=== PATIENT | male | born 1965 | race Caucasian/White ===

== ENCOUNTER 2017-10-23 16:05 | Emergency (ER) | payer OTHER ==
[~2017-10-23] VITALS: Ht 190.5 cm; Wt 95.2 kg
[~2017-10-23 16:05] MED LIST: ANTIBX PO; Bactrim Ds Tab1 EACH PO; Cleocin HCl300 MG PO; HYDR1TAB94 PO; Percocet 5-3251 EACH PO; Rocephin 1g1 G/50 ML IV
[2017-10-23 16:39] LABS: BASOPHILS ABSOLUTE AUTO 0.05 K/mm3 (0.00-0.23); BASOPHILS PERCENT AUTO 1 % (0-2); EOSINOPHILS ABSOLUTE AUTO 0.24 K/mm3 (0.00-0.68); EOSINOPHILS PERCENT AUTO 3 % (0-6); Hematocrit 39.9 % (37.0-53.0); Hemoglobin 13.3 g/dL (13.5-17.5); IMMATURE GRAN ABSOLUTE AUTO 0.02 K/mm3 (0.00-0.10); IMMATURE GRAN PERCENT AUTO 0 % (0-1); LYMPHOCYTES ABSOLUTE AUTO 2.09 K/mm3 (0.84-5.20); LYMPHOCYTES PERCENT AUTO 30 % (21-46); MONOCYTES ABSOLUTE AUTO 0.38 K/mm3 (0.16-1.47); MONOCYTES PERCENT AUTO 5 % (4-13); Mean Corpuscular HGB 31.2 pg (26.0-34.0); Mean Corpuscular HGB Conc 33.3 g/dL (31.5-36.5); Mean Corpuscular Volume 94 fL (80-100); Mean Platelet Volume 9.3 fL (9.1-12.4); NEUTROPHILS ABSOLUTE AUTO 4.29 K/mm3 (1.96-9.15); NEUTROPHILS PERCENT AUTO 61 % (41-73); Platelet Count 190 K/mm3 (150-400); RDW Coefficient Variation 13.2 % (11.7-14.2); RDW Standard Deviation 45.1 fL (35.1-46.3); Red Blood Cell Count 4.26 M/mm3 (4.30-5.90); White Blood Cell Count 7.07 K/mm3 (4.00-11.30)
[2017-10-23 16:59] LABS: Alanine Aminotransfer (ALT/SGP 30 U/L (12-78); Albumin, Blood 3.5 g/dL (3.4-5.0); Alk Phos 86 U/L (50-136); Anion Gap 9 mmol/L (6-16); Aspartate Aminotrans (AST/SGOT 32 U/L (12-37); Bilirubin, Total 0.2 mg/dL (0.1-1.0); Blood Urea Nitrogen 15 mg/dL (8-24); Bun/Creatinine Ratio 18.6 (12.0-20.0); CO2, Blood 23 mmol/L (21-32); Calcium, Blood 8.4 mg/dL (8.5-10.1); Chloride, Blood 109 mmol/L (98-108); Creatinine, Blood 0.81 mg/dL (0.60-1.20); Globulin, Blood 3.5 g/dL (2.2-4.0); Glomerular Filtration Rate >60 (60-); Glucose, Blood 105 mg/dL (70-99); Potassium, Blood 3.7 mmol/L (3.5-5.5); Sodium, Blood 141 mmol/L (136-145); Troponin I <0.015 ng/mL (0.000-0.040)
== END 2017-10-23 19:18 | disposition home or self-care (01) ==
LOC: ER 16:05
PROVIDERS: Emergency Medicine
DX: R07.9 Chest pain, unspecified (principal); I10 Essential (primary) hypertension; F17.210 Nicotine dependence, cigarettes, uncomplicated; Z86.73 Personal history of transient ischemic attack (TIA), and cerebral infarction without residual deficits
CPT/HCPCS: 36415; 71046; 80053; 84484; 85025; 93005; 93010; 99283

== ENCOUNTER 2019-01-26 12:44 | Inpatient (IN) | payer OTHER ==
[~2019-01-26] VITALS: Ht 193 cm; Wt 106.6 kg
[~2019-01-26 12:44] MED LIST changes: +Keflex500 MG PO
[2019-01-26 15:26] LABS: BASOPHILS ABSOLUTE AUTO 0.06 K/mm3 (0.00-0.23); BASOPHILS PERCENT AUTO 1 % (0-2); EOSINOPHILS PERCENT AUTO 2 % (0-6); Hemoglobin 15.2 g/dL (13.5-17.5); IMMATURE GRAN ABSOLUTE AUTO 0.05 K/mm3 (0.00-0.10); IMMATURE GRAN PERCENT AUTO 0 % (0-1); LYMPHOCYTES ABSOLUTE AUTO 1.42 K/mm3 (0.84-5.20); LYMPHOCYTES PERCENT AUTO 11 % (21-46); MONOCYTES ABSOLUTE AUTO 0.93 K/mm3 (0.16-1.47); MONOCYTES PERCENT AUTO 8 % (4-13); Mean Corpuscular HGB 30.3 pg (26.0-34.0); Mean Corpuscular HGB Conc 32.3 g/dL (31.5-36.5); Mean Corpuscular Volume 94 fL (80-100); Mean Platelet Volume 9.6 fL (9.1-12.4); NEUTROPHILS ABSOLUTE AUTO 9.69 K/mm3 (1.96-9.15); NEUTROPHILS PERCENT AUTO 78 % (41-73); Platelet Count 196 K/mm3 (150-400); RDW Coefficient Variation 13.1 % (11.7-14.2); RDW Standard Deviation 44.5 fL (35.1-46.3); Red Blood Cell Count 5.02 M/mm3 (4.30-5.90); White Blood Cell Count 12.45 K/mm3 (4.00-11.30)
[2019-01-26 15:49] LABS: Alanine Aminotransfer (ALT/SGP 34 U/L (12-78); Albumin, Blood 3.3 g/dL (3.4-5.0); Albumin/Globulin Ratio 0.7 (0.8-1.8); Alk Phos 114 U/L (50-136); Anion Gap 7 mmol/L (6-16); Aspartate Aminotrans (AST/SGOT 22 U/L (12-37); Bilirubin, Total 0.5 mg/dL (0.1-1.0); Blood Urea Nitrogen 9 mg/dL (8-24); Bun/Creatinine Ratio 10.2 (12.0-20.0); CO2, Blood 23 mmol/L (21-32); Chloride, Blood 104 mmol/L (98-108); Creatinine, Blood 0.88 mg/dL (0.60-1.20); Globulin, Blood 4.7 g/dL (2.2-4.0); Glomerular Filtration Rate >60 (60-); Glucose, Blood 86 mg/dL (70-99); Potassium, Blood 4.2 mmol/L (3.5-5.5); Sodium, Blood 134 mmol/L (136-145)
[2019-01-26 22:31] LABS: U Amphetamine Screen Not Detected; U Barbituate Screen Not Detected; U Benzodiazapine Screen Not Detected; U Buprenorphine Screen Not Detected; U Cannabinoids Screen Not Detected; U Cocaine Screen Not Detected; U Methadone Screen Not Detected; U Methamphetamine Screen DETECTED; U Opiates Screen DETECTED; U Oxycodone Screen Not Detected; U Phencyclidine Screen Not Detected; U Propoxyphene Screen Not Detected
[2019-01-27 05:28] LABS: BASOPHILS ABSOLUTE AUTO 0.03 K/mm3 (0.00-0.23); BASOPHILS PERCENT AUTO 0 % (0-2); EOSINOPHILS ABSOLUTE AUTO 0.38 K/mm3 (0.00-0.68); EOSINOPHILS PERCENT AUTO 4 % (0-6); Hemoglobin 12.9 g/dL (13.5-17.5); IMMATURE GRAN ABSOLUTE AUTO 0.06 K/mm3 (0.00-0.10); IMMATURE GRAN PERCENT AUTO 1 % (0-1); LYMPHOCYTES ABSOLUTE AUTO 1.26 K/mm3 (0.84-5.20); LYMPHOCYTES PERCENT AUTO 12 % (21-46); MONOCYTES ABSOLUTE AUTO 0.84 K/mm3 (0.16-1.47); MONOCYTES PERCENT AUTO 8 % (4-13); Mean Corpuscular HGB 30.8 pg (26.0-34.0); Mean Corpuscular HGB Conc 33.1 g/dL (31.5-36.5); Mean Corpuscular Volume 93 fL (80-100); Mean Platelet Volume 9.7 fL (9.1-12.4); NEUTROPHILS ABSOLUTE AUTO 7.98 K/mm3 (1.96-9.15); NEUTROPHILS PERCENT AUTO 76 % (41-73); Platelet Count 190 K/mm3 (150-400); RDW Coefficient Variation 12.8 % (11.7-14.2); RDW Standard Deviation 43.9 fL (35.1-46.3); Red Blood Cell Count 4.19 M/mm3 (4.30-5.90); White Blood Cell Count 10.55 K/mm3 (4.00-11.30)
--- NOTE | 2019-01-27 05:39 | NUR ---
SHIFT SUMMARY PATIENT IS ALERT AND ORIENTED TO SELF, PLACE, AND TIME. PATIENT WENT OUT TO SMOKE. THEN SLEPT WELL. USING URINAL AT BEDSIDE. CELLULITIS MARKED ON RIGHT ARM BY BRIDGET HOLLOWAY. BRIDGET ALSO PLACED A POWER GLIDE IN LEFT UPPER ARM. REMOVED 20G IV IN LEFT HAND, IT WAS INFILTRATED. NO NEW CHANGES NOTED AT THIS TIME. VITALS STABLE. PT DOES STILL HAVE IV IN RIGHT FOOT.
[2019-01-27 05:50] LABS: Anion Gap 5 mmol/L (6-16); Blood Urea Nitrogen 11 mg/dL (8-24); Bun/Creatinine Ratio 11.9 (12.0-20.0); CO2, Blood 27 mmol/L (21-32); Calcium, Blood 8.4 mg/dL (8.5-10.1); Chloride, Blood 106 mmol/L (98-108); Creatinine, Blood 0.92 mg/dL (0.60-1.20); Glomerular Filtration Rate >60 (60-); Glucose, Blood 100 mg/dL (70-99); Sodium, Blood 138 mmol/L (136-145)
--- NOTE | 2019-01-27 16:47 | NUR ---
PT IS A/OX3, PLEASANT AND COOPERATIVE, THE PT IS UP IND IN HIS ROOM AND HAS BEEN OUTSIDE X2 TODAY TO SMOKE, THE PT HAS SLEPT FOR MOST OF THE DAY, PT WAS MEDICATED FOR RIGHT ARM PAIN WITH TYLENOL X2 TODAY, CALL LIGHT IN REACH WILL CONTINUE TO MONITOR AND ASSESS FOR CHANGES
--- NOTE | 2019-01-28 06:09 | NUR ---
SHIFT SUMMARY PATIENT ALERT AND ORIENTED. PATIENT SLEPT ALMOST ALL OF SHIFT. USES URINAL AT BEDSIDE. DID NOT SEE PATIENT GO OUT SIDE TO SMOKE THROUGHOUT THE NIGHT. LAB CALLED TO REPORT THAT BLOOD CULTURES CAME BACK POSITIVE. NOTIFED CHARGE, PHARMACIST, AND HOSPITALIST. ANTIBIOTICS CHANGED. NO OTHER NEW CHANGES. VITALS STABLE.
--- NOTE | 2019-01-28 17:47 | NUR ---
SHIFT SUMMARY: NO ACUTE CHANGES TO REPORT THIS SHIFT. PT A&O; CALM AND COOPERATIVE WITH CARE. PT INDEPENDENT IN ROOM; PT OUTSIDE TO SMOKE SEVERAL TIMES THIS SHIFT. R ARM CELLULITIS; EDGES MARKED; IV ABX CONTINUING. WCTM.
--- NOTE | 2019-01-29 18:01 | NUR ---
SHIFT SUMMARY: NO ACUTE CHANGES TO REPORT THIS SHIFT. PT A&O; CALM AND COOPERATIVE WITH CARE. PT INDEPENDENT IN ROOM. NO C/O PAIN THIS SHIFT. PT INDEPENDENT IN ROOM; OUTSIDE TO SMOKE SEVERAL TIMES THIS SHIFT. IV ABX CONTINUING. WCTM.
--- NOTE | 2019-01-30 04:58 | NUR ---
pt quiet but cooperative, withdrawn and minimal activity. out tosmoke x 1. Denies pain or acute distress. rt arm cellulitis decreased edema warmth and redness. no visitors tonight. RT arm lesions dry without drainage.
--- NOTE | 2019-01-30 18:49 | NUR ---
SHIFT SUMMARY: NO ACUTE CHANGES TO REPORT THIS SHIFT. PT A&O; CALM AND COOPERATIVE WITH CARE. NO C/O PAIN THIS SHIFT. PT INDEPENDENT IN ROOM; OUTSIDE TO SMOKE SEVERAL TIMES THIS SHIFT; NICOTINE PATCH NOT IN PLACE. R FA CELLULITIS; IV ABX CONTINUING. EXPECTED D/C 01/31, PER HOSPITALIST (DR HEART). WCTM.
[2019-01-31] MEDS ORDERED: Augmentin 875-1 EACH PO (10:41)
[2019-01-31] MEDS ORDERED: Florastor250 MG PO (10:41)
--- NOTE | 2019-01-31 15:05 | NUR ---
DISCHARGE SUMMARY: LATE ENTRY PATIENT DENIED PAIN OR DISCOMFORT THROUGHOUT THE SHIFT. DRESSING ON RIGHT ARM REMAINED C/D/I. PATIENT ABLE TO MOVE RIGHT HAND WITHOUT DISCOMFORT. PATIENT OUTSIDE MULTIPLE TIMES TO SMOKE. DENIED DIZZINESS OR SOB WITH AMBULATION. PATIENT DISCHARGED PER DR. CHRISTIANSEN'S ORDERS. PATIENT PROVIDED WITH PACKET OF RESOURCES FOR THE HOMELESS POPULATION. APPT. SET UP WITH NEW PCP. PROVIDED PATIENT WITH PACKET TO FILL OUT PRIOR TO FIRST APPT. PATIENT DENIED ASSISTANCE. HE REPORTED THAT HIS SISTER WILL HELP HIM. DISCHARGE EDUCATION AND INFORMATION PROVIDED. RX FAXED TO [facility] PER PATIENT REQUEST. ALL QUESTIONS AND CONCERNS ADDRESSED. PATIENT DISCHARGED IN WHEELCHAIR WITH SCHOOL DIRECTOR. PATIENT STABLE AT TIME OF DISCHARGE.
== END 2019-01-31 12:26 | disposition home or self-care (01) | DRG 872 ==
LOC: ER 12:44 → MEDS 18:04 → ENPENDDIS 01-31 10:43 → MEDS 01-31 12:26
PROVIDERS: Nurse Practitioner Acute Care; Physician Assistant; ADMIT Internal Medicine
DX: A41.9 Sepsis, unspecified organism (principal); L03.113 Cellulitis of right upper limb; L02.91 Cutaneous abscess, unspecified; Z86.73 Personal history of transient ischemic attack (TIA), and cerebral infarction without residual deficits; F17.210 Nicotine dependence, cigarettes, uncomplicated; Z59.0 Homelessness
CPT/HCPCS: 36415; 80048; 80053; 82550; 83605; 85025; 87040; 93971; 96361; 96365; 96375; 99283; 99284-25; A9270; J0290; J0690; J0696; J1650; J1885; J2270; J3370; J7030; J7050

== ENCOUNTER → 2023-08-25 | Outpatient (CLI) | payer OTHER ==
[~2023-08-25] MED LIST changes: +Augmentin 875-1 EACH PO; +Florastor250 MG PO
== END ==
LOC: LAB SHORT 11:29 → LAB 11:29
DX: L03.116 Cellulitis of left lower limb (principal)
CPT/HCPCS: 87070; 87075; 87077; 87147; 87186; 87205

== ENCOUNTER 2024-06-23 05:06 | Inpatient (IN) | payer OTHER ==
[~2024-06-23] VITALS: Ht 193 cm; Wt 111.1 kg
[~2024-06-23 05:06] MED LIST changes: +ASPI81CH PO; +Cleocin HCl150 MG PO; +DOXY100 PO; +VISBIOME 112.51 EACH PO
[2024-06-23] MEDS ORDERED: Ketorolac Tromethamine 30mg Vial IV ONE (07:20)
[2024-06-23 08:13] LABS: BASOPHILS ABSOLUTE AUTO 0.08 K/mm3 (0.00-0.23); BASOPHILS PERCENT AUTO 0 % (0-2); EOSINOPHILS PERCENT AUTO 0 % (0-6); Hematocrit 49.4 % (37.0-53.0); Hemoglobin 16.4 g/dL (13.5-17.5); IMMATURE GRAN ABSOLUTE AUTO 0.24 K/mm3 (0.00-0.10); IMMATURE GRAN PERCENT AUTO 1 % (0-1); LYMPHOCYTES ABSOLUTE AUTO 1.01 K/mm3 (0.84-5.20); LYMPHOCYTES PERCENT AUTO 5 % (21-46); MONOCYTES ABSOLUTE AUTO 1.13 K/mm3 (0.16-1.47); MONOCYTES PERCENT AUTO 6 % (4-13); Mean Corpuscular HGB 30.3 pg (26.0-34.0); Mean Corpuscular HGB Conc 33.2 g/dL (31.5-36.5); Mean Corpuscular Volume 91 fL (80-100); Mean Platelet Volume 9.5 fL (9.1-12.4); NEUTROPHILS ABSOLUTE AUTO 18.01 K/mm3 (1.96-9.15); NEUTROPHILS PERCENT AUTO 88 % (41-73); Platelet Count 250 K/mm3 (150-400); RDW Coefficient Variation 13.2 % (11.7-14.2); RDW Standard Deviation 44.1 fL (35.1-46.3); Red Blood Cell Count 5.42 M/mm3 (4.30-5.90); White Blood Cell Count 20.47 K/mm3 (4.00-11.30)
[2024-06-23 09:04] LABS: Albumin, Blood 3.5 g/dL (3.4-5.0); Albumin/Globulin Ratio 0.6 (0.8-1.8); Bilirubin, Total 0.8 mg/dL (0.1-1.0); Bun/Creatinine Ratio 10.4 (12.0-20.0); Calcium, Blood 9.7 mg/dL (8.5-10.1); Creatinine, Blood 1.25 mg/dL (0.60-1.20); Globulin, Blood 5.6 g/dL (2.2-4.0); Magnesium, Blood 1.7 mg/dL (1.6-2.4); Potassium, Blood 4.8 mmol/L (3.5-5.5); Total Protein, Blood 9.1 g/dL (6.4-8.2)
[2024-06-23] MEDS ORDERED: NS 1,000 ML IV SCH ×3 (09:15→12:35)
[2024-06-23] MEDS ORDERED: CeFAZolin Sodium 2,000 MG in NS 100 ML IV ONE (09:15)
[2024-06-23] MEDS ORDERED: Vancomycin HCL 2,500 MG in NS 500 ML IV ONE (09:35)
[2024-06-23] MEDS ORDERED: Ondansetron HCl 2 MG / ML 2ML Vial IV PRN (10:25)
[2024-06-23] MEDS ORDERED: FLU VACC TS2024-25(6MOS UP)/PF 45 MCG/0.5 ML SYRINGE IM SCH (10:30)
[2024-06-23] MEDS ORDERED: Acetaminophen 325 MG TABLET PO PRN (10:30)
[2024-06-23] MEDS ORDERED: Nicotine 14 MG PATCH TOP SCH (11:00)
[2024-06-23 14:45] VITALS: BP 148/74
[2024-06-23] MEDS ORDERED: TraMADol HCl 50 MG Tab PO PRN (15:25)
--- NOTE | 2024-06-23 19:19 | NUR ---
SHIFT SUMMARY: KAREN IS A&OX4. VSS, NO ACUTE EVENTS SINCE ADMISSION TO THE FLOOR THIS AFTERNOON. PT SHOWERED, POWERGLIDE TO RIGHT UPPER ARM PATENT, FLUIDS INFUSING PER ORDER. PT REPORTED CARDIAC HX WHICH HE DESCRIBED "HEART VALVE" AND COMPLAINED OF CHEST PAIN. CALLED AND DISCUSSED WITH PROVIDER AND REQUESTED TELEMETRY, NO NEW ORDERS WERE GIVEN. PT DENIES CHEST PAIN AT THIS TIME. PT HAS AN OPEN WOUND TO THE LEFT FOREARM WHICH IS DRAINING PURULENT FLUID, CALLED PROVIDER AND REQUESTED WOUND CARE ORDERS, NO NEW ORDERS WERE GIVEN, RN INSTRUCTED TO LEAVE WOUND OPEN TO AIR. IMAGING REVEALED A NONDISPLACED FX OF THE LEFT RADIAL HEAD, CALLED PROVIDER AND REQUESTED ORDERS FOR WEIGHT BEARING STATUS AND PROTECTION, PROVDER PLACED ORDER FOR ORTHO CONSULT. PT'S HANDS AND FEET NOTED TO HAVE PURPULISH DISCOLORATION, DISCUSSED WITH PROVIDER AND REQUESTED DIAGNOSTIC STUDY TO RULE OUT PERIPHERAL VASCULAR DISEASE, NO ORDER RECEIVED AT THIS TIME. HE IS TOLERATING PO INTAKE WELL, INDEPENDENT IN THE ROOM, AND IS LYING IN BED WITH THE CALL LIGHT IN REACH. ANTIBIOTICS WERE STARTED IN THE ER, CULTURE COLLECTED FROM LEFT FOREARM WOUND AND SENT TO LAB. HE IS LYING IN BED WITH THE CALL LIGHT IN REACH, BED IN LOWEST POSITION. REPORT WAS GIVEN TO RETAIL SPECIALIST RN.
[2024-06-23] MEDS ORDERED: CeFAZolin Sodium 2,000 MG in NS 100 ML IV SCH (20:00)
[2024-06-23 20:20] VITALS: BP 141/85
[2024-06-23 22:57] VITALS: BP 141/80
[2024-06-23] MEDS ORDERED: Vancomycin HCL 1,250 MG in NS 250 ML IV SCH (23:00)
[2024-06-24] VITALS (16 sets, daily range): BP systolic 115–153; BP diastolic 60–95
[2024-06-24] MEDS ORDERED: NS 250 ML IV PRN (04:05)
--- NOTE | 2024-06-24 04:55 | NUR ---
SHIFT SUMMARY 58 YR M ADMITTED ON 06/23/24. FULL CODE. NO ACUTE CHANGES THIS SHIFT. WOUND ON LEFT FOREARM DRAINING PURULENT DRAINAGE CAUSING GOWN AND BEDDING TO BE WET SO IT WAS WRAPPED W/ NON STICK PAD AND GAUZE. PT HAD A FEVER OF 101.1 AT BEGINNING OF SHIFT AND WAS GIVEN TYLENOL, BRINGING TEMP DOWN TO 98. TEMP BEGINNING TO RISE AGAIN NEAR END OF SHIFT SO ANOTHER DOSE OF TYLENOL WAS GIVEN. PT HAD NO C/O PAIN OR DISCOMFORT THIS SHIFT AND HAS SLEPT FOR MOST OF THE NIGHT. NO C/O CHEST PAIN OR SOB. POWERGLIDE IN R UPPER ARM DOES NOT DRAW. CONTINENT AND USES URINAL INDEPENDANTLY. BED IN LOW POSITION AND CALL LIGHT IN REACH.
--- NOTE | 2024-06-24 08:10 | NUR ---
NOTE: PATIENT ORTHO CONSULT FOR RADIAL HEAD FX WAS CALLED AT 0752, SPOKE TO DR. BLOOD AND VERIFIED IF PATIENT WILL PLACED ON NPO. PER DR. PEREZ THE FX IS NON OPERATIVE PATIENT CAN EAT HIS BREAKFAST, HE WILL ORDERED AN XRAY TO AFFECTED SITE AND WILL BE PLACE ON ARM SLING.
[2024-06-24] MEDS ORDERED: Enoxaparin 40 MG/0.4 ML SYR SC SCH (09:00)
[2024-06-24 09:15] LABS: Hematocrit 40.6 % (37.0-53.0); Hemoglobin 13.9 g/dL (13.5-17.5); Mean Corpuscular HGB 30.5 pg (26.0-34.0); Mean Corpuscular HGB Conc 34.2 g/dL (31.5-36.5); Mean Corpuscular Volume 89 fL (80-100); Mean Platelet Volume 8.9 fL (9.1-12.4); Platelet Count 173 K/mm3 (150-400); RDW Coefficient Variation 13.2 % (11.7-14.2); RDW Standard Deviation 43.4 fL (35.1-46.3); Red Blood Cell Count 4.55 M/mm3 (4.30-5.90)
[2024-06-24 09:37] LABS: Bun/Creatinine Ratio 14.9 (12.0-20.0); Calcium, Blood 8.6 mg/dL (8.5-10.1); Creatinine, Blood 1.21 mg/dL (0.60-1.20); Potassium, Blood 3.9 mmol/L (3.5-5.5)
--- NOTE | 2024-06-24 16:52 | NUR ---
SHIFT SUMMARY: PATIENT A/OX4, PLEASANT AND COOPERATIVE c CARE. PATIENT DENIES CP/PRESSURE, SOB, N/V AND DIZZINESS. PATIENT HAS ABSCESS TO L FOREARM c PURULENT DRAINAIGE. DR. BLOOD (ORTHOPEDICS) CAME IN FOR CONSULT TO RADIAL HEAD FX AND SPOKE TO PATIENT c PLAN OF CARE TO PROCEED c I/D DONE TO L FOREARM ABSCESS SOMETIMES THIS PM. PATIENT AGREED c THE PROCEDURE AND HAS BEEN NPO SINCE 0900. PATIENT RECEIVED IV ABX/SCHEDULED MEDS PER EMAR. PATIENT CONTINENT OF BLADDER, USES URINAL INDEPENDENTLY T/O SHIFT. VITAL SIGNS REVIEWED. CALL LIGHT IN REACH.
[2024-06-24] MEDS ORDERED: propofoL 20 ML IV ONE (17:29)
[2024-06-24] MEDS ORDERED: FentaNYL Citrate 50 MCG/ML 2 ML Injection ONE (17:52)
[2024-06-24] MEDS ORDERED: Lactated Ringer's 1,000 ML IV ONE (18:14)
--- NOTE | 2024-06-24 18:21 | NUR ---
ADDITIONAL NOTE: PATIENT LEFT THE ROOM AT 1821 TRANSPORTED VIA GURNEY, BY AMIE WRIGHT TO DAY SURGERY FOR I/D TO L FOREARM.
[2024-06-24] MEDS ORDERED: Ipratropium/Albuterol SulF 2.5-0.5MG/3 ML Amp ONE (18:33)
[2024-06-24] MEDS ORDERED: Ipratropium/Albuterol SulF 2.5-0.5MG/3 ML Amp INH ONE (18:40)
[2024-06-24] MEDS ORDERED: Ondansetron HCl 2 MG / ML 2ML Vial ONE (19:06)
[2024-06-24] MEDS ORDERED: HYDROmorphone HCl/Pf 1MG SYR ONE (19:40)
[2024-06-25 00:57] VITALS: BP 135/80
--- NOTE | 2024-06-25 03:57 | NUR ---
SHIFT SUMMARY ADMITTED FOR SEVERE SEPSIS/LACTIC ACIDOSIS. FULL CODE. I&D PERFORMED ON LEFT FOREARM AT BEGINNING OF THIS SHIFT. SUTURES IN PLACE, DRESSING IS CLEAN DRY AND INTACT. PT IS A&O X4, ON RA, CARDIAC DIET. DR. BLOOD IS ORTHO CONSULT. IV ANTIB RX ARE SCHEDULED. LEFT ARM IS IN A SLING FROM A WEEK OLD FRACTURE. PAIN RX GIVEN ONE TIME THIS SHIFT. HE DID RECEIVE AN RT TREATMENT FOR HIS BREATHING DOWN IN DAY SURGERY WHICH IMPROVED HIS BREATHING.
[2024-06-25 04:54] VITALS: BP 145/85
[2024-06-25 04:58] LABS: Hematocrit 39.3 % (37.0-53.0); Hemoglobin 13.2 g/dL (13.5-17.5); Mean Corpuscular HGB 30.3 pg (26.0-34.0); Mean Corpuscular HGB Conc 33.6 g/dL (31.5-36.5); Mean Corpuscular Volume 90 fL (80-100); Platelet Count 186 K/mm3 (150-400); RDW Coefficient Variation 13.1 % (11.7-14.2); RDW Standard Deviation 43.6 fL (35.1-46.3); Red Blood Cell Count 4.35 M/mm3 (4.30-5.90); White Blood Cell Count 8.93 K/mm3 (4.00-11.30)
[2024-06-25 05:23] LABS: Bun/Creatinine Ratio 13.9 (12.0-20.0); Calcium, Blood 8.3 mg/dL (8.5-10.1); Creatinine, Blood 1.22 mg/dL (0.60-1.20)
[2024-06-25 07:42] VITALS: BP 133/81
[2024-06-25 11:04] LABS: Vancomycin, Trough 16.5 ug/mL (5.0-10.0)
[2024-06-25] MEDS ORDERED: Terbinafine 250 MG Tab PO SCH (13:00)
[2024-06-25 15:46] VITALS: BP 135/88
--- NOTE | 2024-06-25 17:14 | NUR ---
SHIFT SUMMARY PT A&0X4. PT ADMITTED DUE TO SEVERE SEPSIS. PT RECEIVING ANTIBIOTICS. PT POD1 FROM A L FOREARM EXCISIONAL IRRIGATION AND DEBRIDMENT. PT HAS L NONDISPLACED RADIAL HEAD FX. L ARM IN SLING, PT EDUCATED TO WEAR SLING. PT REPORTS SOME PAIN, AND PAIN MANAGED PER EMAR. VSS. PT INDEPENDENT IN ROOM, CALLS APPROPRIATELY, CALL LIGHT IN REACH, BED IN LOWEST POSITION. PLAN FOR JEREMI TO DO DRESSING CHANGE TOMORROW AND CONT. ANTIBIOTICS.
[2024-06-25 20:45] VITALS: BP 123/70
[2024-06-25] MEDS ORDERED: Lactobacil 2-S.Thermo-Bifido 1 1 Cap PO SCH (21:00)
[2024-06-26 03:44] VITALS: BP 137/76
[2024-06-26 05:06] LABS: BASOPHILS ABSOLUTE AUTO 0.04 K/mm3 (0.00-0.23); BASOPHILS PERCENT AUTO 1 % (0-2); EOSINOPHILS ABSOLUTE AUTO 0.24 K/mm3 (0.00-0.68); EOSINOPHILS PERCENT AUTO 4 % (0-6); Hemoglobin 13.6 g/dL (13.5-17.5); IMMATURE GRAN ABSOLUTE AUTO 0.02 K/mm3 (0.00-0.10); IMMATURE GRAN PERCENT AUTO 0 % (0-1); LYMPHOCYTES ABSOLUTE AUTO 1.25 K/mm3 (0.84-5.20); LYMPHOCYTES PERCENT AUTO 19 % (21-46); MONOCYTES ABSOLUTE AUTO 0.59 K/mm3 (0.16-1.47); MONOCYTES PERCENT AUTO 9 % (4-13); Mean Corpuscular HGB 29.8 pg (26.0-34.0); Mean Corpuscular HGB Conc 33.2 g/dL (31.5-36.5); Mean Corpuscular Volume 90 fL (80-100); Mean Platelet Volume 9.6 fL (9.1-12.4); NEUTROPHILS ABSOLUTE AUTO 4.49 K/mm3 (1.96-9.15); NEUTROPHILS PERCENT AUTO 68 % (41-73); Platelet Count 208 K/mm3 (150-400); RDW Coefficient Variation 12.9 % (11.7-14.2); RDW Standard Deviation 42.5 fL (35.1-46.3); Red Blood Cell Count 4.56 M/mm3 (4.30-5.90); White Blood Cell Count 6.63 K/mm3 (4.00-11.30)
--- NOTE | 2024-06-26 05:06 | NUR ---
SHIFT SUMMARY ADMITTED FOR ABSCESS OF L. FOREARM/SEPSIS. FULL CODE. PLAN IS FOR IV ANTIB. I&D PERFORMED ON ABSCESS 06/25/24. SLING ON L. ARM FOR LEFT RADIAL FRACTURE. DR. BLOOD IS ORTHO CONSULT. CARDIAC DIET. POWERGLIDE IN RUE. INDEPENDENT IN ROOM. ON RA. NO NEW CONCERNS THIS SHIFT
[2024-06-26 05:42] LABS: Bun/Creatinine Ratio 14.9 (12.0-20.0); Calcium, Blood 8.6 mg/dL (8.5-10.1); Creatinine, Blood 1.21 mg/dL (0.60-1.20); Potassium, Blood 3.8 mmol/L (3.5-5.5)
[2024-06-26 07:44] VITALS: BP 147/82
[2024-06-26 16:07] VITALS: BP 153/85
--- NOTE | 2024-06-26 17:21 | NUR ---
SHIFT SUMMARY: PATIENT HAS HAD NO NEW ACUTE CHANGES THIS SHIFT. PATIENT A/OX4, CALM, PLEASANT AND COOPERATIVE c CARE. PATIENT DAY 2 POST OP I/D TO L FOREARM, DR. BLOOD (ORTHO) CAME BY TODAY. DRESSING CHANGED TO L FOREARM. THIS RN RECEIVED VO FOR DAILY DRESSING CHANGED. PATIENT RECEIVED IV ABX/SCHEDULED MEDS PER EMAR. PATIENT HAD BEDBATH, SHAVED AND LINEN CHANGED, ASSISTED BY DENIZ GATES. PATIENT HAS GREAT APPETITE, CONTINENT OF BOWEL/BLADDER, USES URINAL AND AMBULATES TO BATHROOM INDEPENDENTLY T/O SHIFT. CALL LIGHT IN REACH.
[2024-06-26 19:51] VITALS: BP 153/80
[2024-06-27 03:39] VITALS: BP 140/98
--- NOTE | 2024-06-27 06:14 | NUR ---
AAOX4, WITHDRAWN BUT COOPERATIVE WITH CARES. ABX GIVEN SCHEDULED. USED URINAL @ BEDSIDE. DECLINES TO WEAR SLING TO LUE, FOR RADIAL HEAD FX. PT DID NOT GET OUT OF BED AND SLEPT WELL.
[2024-06-27 07:58] VITALS: BP 119/76
[2024-06-27 15:58] VITALS: BP 143/110
[2024-06-27] MEDS ORDERED: VISBIOME 112.51 EACH PO (16:17)
[2024-06-27] MEDS ORDERED: SULFAMETHOXAZO1 EAC1 PO (16:17)
[2024-06-27] MEDS ORDERED: TERB250 PO (16:18)
--- NOTE | 2024-06-27 16:39 | NUR ---
DISCHARGE NOTE PT DISCHARGED HOME AT APPROX 1635. PT PROVIDED W/ VERBAL AND WRITTEN INSTRUCTIONS AND REPORTED UNDERSTANDING. THIS NURSE DEMONSTRATED AND COMPLETED WOUND CARE PRIOR TO D/C. PT A&OX4, VSS, AMB IND, TOLERATING PO, VOIDING, AND DENIED PAIN. BELONGINGS WERE RETURNED. PT WALKED HIMSELF OUT TO THE PT ENTRANCE.
== END 2024-06-27 16:37 | disposition home or self-care (01) | DRG 854 ==
LOC: ER 05:06 → MEDS 10:22 → ERHOLD 10:22 → MEDS 14:18
PROVIDERS: Family Medicine; Orthopaedic Surgery Sports Medicine; Student in an Organized Health Care Education/Training Program; ADMIT Internal Medicine
PROC: 3E03329 Introduction of Other Anti-infective into Peripheral Vein, Percutaneous Approach (ICD-10-PCS; 2024-06-23)
PROC: 0JBF0ZZ Excision of Left Upper Arm Subcutaneous Tissue and Fascia, Open Approach (ICD-10-PCS; principal; 2024-06-24 16:00)
DX: A41.02 Sepsis due to Methicillin resistant Staphylococcus aureus (principal); E87.1 Hypo-osmolality and hyponatremia; E87.20 Acidosis, unspecified; L03.114 Cellulitis of left upper limb; I96 Gangrene, not elsewhere classified; L02.414 Cutaneous abscess of left upper limb; N17.9 Acute kidney failure, unspecified; R65.20 Severe sepsis without septic shock; S52.122A Displaced fracture of head of left radius, initial encounter for closed fracture; L98.499 Non-pressure chronic ulcer of skin of other sites with unspecified severity; W18.30XA Fall on same level, unspecified, initial encounter; Z86.73 Personal history of transient ischemic attack (TIA), and cerebral infarction without residual deficits; I10 Essential (primary) hypertension; F17.210 Nicotine dependence, cigarettes, uncomplicated; Z86.14 Personal history of Methicillin resistant Staphylococcus aureus infection; Z98.890 Other specified postprocedural states
CPT/HCPCS: 36415; 73030; 73090; 80048; 80053; 80202; 83605; 83690; 83735; 85025; 85027; 85651; 86140; 87040; 87070; 87075; 87077; 87147; 87186; 87205; 93005; 93010; 96374; 99285-25; A9270; C1751; J0690; J1171; J1650; J1885; J2405; J2704; J3010; J3370; J7030; J7040; J7050; J7120